=== PATIENT | female | born 1980 | race Caucasian/White ===

== ENCOUNTER 2024-03-02 18:43 | Emergency (ER) | payer SELFPAY ==
[2024-03-02] MEDS ORDERED: Acetaminophen 500 MG TAB ONE (20:28)
== END 2024-03-02 20:28 | disposition home or self-care (01) ==
LOC: ERS 18:43
DX: S06.0X0A Concussion without loss of consciousness, initial encounter (principal); M54.2 Cervicalgia; W01.198A Fall on same level from slipping, tripping and stumbling with subsequent striking against other object, initial encounter
CPT/HCPCS: 70450; 72125